=== PATIENT | male | born 1965 | race Hispanic/Latino ===

== ENCOUNTER 2018-07-05 15:23 | Emergency (ER) | payer MEDICARE ==
[2018-07-05] MEDS ORDERED: KETOROLAC TROMETHAMINE 60 MG/2 ML VIAL ONE (15:37)
[2018-07-05] MEDS ORDERED: CYCLOBENZAPRINE HCL 10 MG TABLET ONE (15:38)
[2018-07-05] MEDS ORDERED: HYDROMORPHONE 1 MG/1 ML AMP ONE (16:31)
== END 2018-07-05 17:27 | disposition home or self-care (01) ==
LOC: EDH 15:23
DX: M51.36 Other intervertebral disc degeneration, lumbar region (principal); E11.9 Type 2 diabetes mellitus without complications
CPT/HCPCS: 72131; 96372 ×2; 99284; J1170; J1885

== ENCOUNTER 2021-08-24 12:55 | Observation (INO) | payer MEDICARE ==
[~2021-08-24] VITALS: Ht 170.2 cm; Wt 89.1 kg
[2021-08-24] MEDS ORDERED: NITROGLYCERIN 1GM OINT 1 INCH/1GM TD ONE ×2 (13:17→13:30)
[2021-08-24] MEDS ORDERED: ASPIRIN 325MG TAB ONE (13:17)
[2021-08-24 13:21] LABS: BASOPHILS % (AUTO) 0.5 % (0.0-5.0); EOSINOPHILS % (AUTO) 0.9 % (0.0-8.0); HEMATOCRIT 42.9 % (42-54); LYMPHOCYTES % (AUTO) 21.8 % (21.0-51.0); MEAN CORPUSCULAR HEMOGLOBIN 30.9 pg (27.0-33.0); MEAN CORPUSCULAR HGB CONC 35.4 g/dL (32.0-36.0); MEAN CORPUSCULAR VOLUME 87.2 fL (79-99); MONOCYTES % (AUTO) 6.9 % (3.0-13.0); NEUTROPHILS % (AUTO) 69.6 % (40.0-77.0); PLATELET COUNT (AUTO) 194 K/uL (130-400); RED BLOOD CELL COUNT(AUTO) 4.92 MIL/uL (4.50-6.20); WHITE BLOOD COUNT (AUTO) 7.9 K/uL (4.8-10.8)
[2021-08-24] MEDS ORDERED: ASPIRIN 325MG TAB PO ONE (13:30)
[2021-08-24 13:32] LABS: APPEARANCE,URINE Clear (CLEAR); BILIRUBIN,URINE Negative (NEGATIVE); COLOR,URINE Yellow (YELLOW); GLUCOSE, URINE (UA) >=1000 mg/dL (NEGATIVE); KETONES,URINE Negative (NEGATIVE); LEUKOCYTE ESTERASE ,URINE Negative (NEGATIVE); NITRATE,URINE Negative (NEGATIVE); OCCULT BLOOD,URINE Negative (NEGATIVE); PH,URINE 6.5 (5.0-8.0); PROTEIN,URINE Negative (NEGATIVE); UROBILINOGEN,URINE 0.2 mg/dL (0.2-1.0)
[2021-08-24 13:33] LABS: POTASSIUM 4.2 mmol/L (3.5-5.1)
[2021-08-24 13:35] LABS: ALBUMIN 3.4 g/dL (3.5-5.0); BILIRUBIN,TOTAL 0.3 mg/dL (0.2-1.0)
[2021-08-24] MEDS ORDERED: 0.9% NACL 500ML IV.SOLN 500 ML IV SCH (14:00)
[2021-08-24] MEDS ORDERED: INSULIN HUMULIN R 100 UNIT/ML 3ML IV ONE (14:00)
[2021-08-24 14:10] LABS: BACTERIA,URINE Rare /HPF (None Seen); RBC,URINE None Seen /HPF (0-1); SQUAMOUS EPITHELIAL CELL,UR 0-2 /HPF (0-2); WBC,URINE None Seen /HPF (0-1)
[2021-08-24 14:20] LABS: AMPHET/METH SCREEN,URINE NEGATIVE (NEGATIVE); BARBITURATE SCREEN, URINE NEGATIVE (NEGATIVE); BENZODIAZEPINES SCREEN,URINE NEGATIVE (NEGATIVE); CANNABINOID SCREEN,URINE NEGATIVE (NEGATIVE); COCAINE SCREEN,URINE NEGATIVE (NEGATIVE); OPIATE SCREEN,URINE NEGATIVE (NEGATIVE); PHENCYCLIDINE SCREEN,URINE NEGATIVE (NEGATIVE)
[2021-08-24 16:58] LABS: HEMOGLOBIN A1C 9.5 % (4.0-6.0)
[2021-08-24] MEDS: LISINOPRIL 10 MG TABLET PO SCH (17:04)
[2021-08-24] MEDS: METOPROLOL TARTRATE 25 MG TAB PO SCH (21:33)
[2021-08-24] MEDS: INSULIN HUMULIN R 100 UNIT/ML 3ML SQ SCH (21:35)
[2021-08-24 22:30] VITALS: BP 144/85
[2021-08-24] MEDS ORDERED: INSULIN (23:15)
[2021-08-25] VITALS: BP 129/78
[2021-08-25 04:48] VITALS: BP 139/74
[2021-08-25] MEDS: INSULIN HUMULIN R 100 UNIT/ML 3ML SQ SCH ×3 (06:21→17:43)
[2021-08-25 06:47] LABS: BASOPHILS % (AUTO) 0.5 % (0.0-5.0); HEMATOCRIT 42.7 % (42-54); MEAN CORPUSCULAR HEMOGLOBIN 31.1 pg (27.0-33.0); MEAN CORPUSCULAR HGB CONC 35.1 g/dL (32.0-36.0); MEAN CORPUSCULAR VOLUME 88.4 fL (79-99); MONOCYTES % (AUTO) 7.9 % (3.0-13.0); NEUTROPHILS % (AUTO) 63.2 % (40.0-77.0); PLATELET COUNT (AUTO) 199 K/uL (130-400); RED BLOOD CELL COUNT(AUTO) 4.83 MIL/uL (4.50-6.20); RED CELL DISTRIBUTION WIDTH 12.3 % (11.0-15.5); WHITE BLOOD COUNT (AUTO) 10.9 K/uL (4.8-10.8)
[2021-08-25 06:52] LABS: CREATININE 0.9 mg/dL (0.5-1.5); POTASSIUM 3.9 mmol/L (3.5-5.1)
[2021-08-25 07:44] VITALS: BP 123/65
[2021-08-25 08:48] LABS: THYROID STIMULATING HORMONE 2.1 uIU/mL (0.36-3.74)
[2021-08-25] MEDS: METOPROLOL TARTRATE 25 MG TAB PO SCH (08:59)
[2021-08-25] MEDS ORDERED: PANTOPRAZOLE 40 MG TAB DR PO SCH (09:00)
[2021-08-25] MEDS ORDERED: ASPIRIN 81 MG EC TAB PO SCH (09:00)
[2021-08-25] MEDS: LISINOPRIL 10 MG TABLET PO SCH (09:00)
[2021-08-25 11:31] VITALS: BP 138/75
[2021-08-25 16:00] VITALS: BP 129/78
[2021-08-25] MEDS ORDERED: ATOR20TA65 PO (17:13)
[2021-08-25] MEDS ORDERED: PANT40TA PO (17:13)
[2021-08-25] MEDS ORDERED: AEC81 PO (17:13)
[2021-08-25] MEDS ORDERED: ATORVASTATIN 20 MG TABLET PO SCH (21:00)
== END 2021-08-25 18:47 | disposition home or self-care (01) ==
LOC: EDH 12:55 → EDHIP 16:40 → INTOOBSV 16:40 → 2AH 22:37
PROVIDERS: ADMIT Internal Medicine; ATTEND Internal Medicine
DX: R07.89 Other chest pain (principal); E11.65 Type 2 diabetes mellitus with hyperglycemia; I10 Essential (primary) hypertension; E78.5 Hyperlipidemia, unspecified; Z79.899 Other long term (current) drug therapy; Z98.890 Other specified postprocedural states
CPT/HCPCS: 36415 ×2; 71045; 80048; 80053; 80061; 80305; 81001; 82948 ×5; 83036; 83880; 84443 ×2; 84484 ×4; 85025 ×2; 85378; 93005; 96374; 99285; G0378; J1815 ×4